=== PATIENT | female | born 1995 | race American Indian/Alaskan Native ===

== ENCOUNTER 2016-06-08 20:01 | Outpatient (CLI) | payer MEDICAID ==
[2016-06-08] MEDS ORDERED: LACTATED RINGERS 1,000 ML ONE (20:46)
[2016-06-08] MEDS ORDERED: LACTATED RINGERS 1,000 ML IV ONE (21:00)
[2016-06-08 21:06] VITALS: BP 123/79
[2016-06-08] MEDS ORDERED: ZOFRAN IV ONE (22:02)
[2016-06-08] MEDS ORDERED: VISTARIL PO ONE (22:03)
[2016-06-08 22:17] LABS: Bacteria,Urine 1+ /HPF (Negative); Bilirubin,Urine NEG (Negative); Blood,Urine NEG (Negative); Ketones,Urine NEG (Negative); Leukocyte Esterase,Urine LG (Negative); Mucus,Urine 2+ /HPF; Nitrite,Urine NEG (Negative)
== END 2016-06-08 23:00 | disposition home or self-care (01) ==
LOC: TRG 20:01
PROVIDERS: ATTEND Obstetrics & Gynecology
DX: O47.03 False labor before 37 completed weeks of gestation, third trimester (principal); Z3A.32 32 weeks gestation of pregnancy
CPT/HCPCS: 81001; J2405; J7120; Q0177

== ENCOUNTER 2016-06-16 13:05 | Outpatient (CLI) | payer MEDICAID ==
--- NOTE | 2016-06-16 15:02 | Emergency Department Report ---
ED Rash HPI - HPI Duration: 2 Days Location: Neck, Chest, Abdomen, Upper Extremities, Lower Extremities Rash Symptoms: Yes Itching, No Facial Swelling, No Tongue/Oral Swelling, No Breathing Difficulties, No Choking Sensation, No Wheezing/Dyspnea, No Peeling, No Blistering, No Fever, No Lightheaded, No Malaise, No Myalgias Severity: moderate <MAR DE LA FUENTE - Last Filed: 06/16/16 18:47> <OFELIA KAPLAN - Last Filed: 06/18/16 15:28> - HPI Chief Complaint: Skin Rash Stated Complaint: RASH/ITCHING Time Seen by Provider: 06/16/16 15:01 ED Review of Systems ROS: Stated complaint: RASH/ITCHING Other details as noted in HPI In complaining of itching rash for the past 2 days it is spread from her abdomen up to her neck her arms and her legs. Patient denies any abdominal pain , and states she feels baby move regularly. Patient denies any vaginal bleeding or abnormal vaginal discharge. Patient denies any shortness of breath , swelling of lips tongue or throat. She states she has tried to call her special certificate dictator multiple times now and has not been able to reach the office. Constitutional: denies: chills, fever, malaise Eyes: denies: eye discharge, vision change ENT: denies: ear pain, throat pain, congestion Respiratory: denies: cough, orthopnea, shortness of breath, SOB with exertion, SOB at rest, stridor, wheezing Cardiovascular: denies: chest pain, palpitations, dyspnea on exertion, orthopnea , edema, syncope, paroxysmal nocturnal dyspnea Gastrointestinal: denies: abdominal pain, nausea, vomiting, diarrhea, constipation, hematemesis, melena Genitourinary: denies: urgency, dysuria, frequency, hematuria, discharge Musculoskeletal: denies: back pain, joint swelling, arthralgia, myalgia Skin: rash, pruritus. denies: change in color, change in hair/nails Neurological: denies: headache, weakness, paresthesias <MAR DE LA FUENTE - Last Filed: 06/16/16 18:47> ROS: Stated complaint: RASH/ITCHING Other details as noted in HPI <OFELIA KAPLAN - Last Filed: 06/18/16 15:28> ED Past Medical Hx - Past Medical History Previous Medical History?: No Hx Hypertension: No Hx Diabetes: No Hx Deep Vein Thrombosis: No Hx Renal Disease: No Hx Sickle Cell Disease: No Hx Seizures: No Hx Asthma: No - Social History Smoking Status: Never Smoker Substance Use Type: None <MAR DE LA FUENTE - Last Filed: 06/16/16 18:47> <OFELIA KAPLAN - Last Filed: 06/18/16 15:28> - Medications Home Medications: Home Medications Medication Instructions Recorded Confirmed Last Taken Type Prednisone [predniSONE 10 mg 10 mg PO .TAPER #1 tab.ds.pk 06/16/16 Unknown Rx (6-Day Pack, 21 Tabs)] diphenhydrAMINE [Benadryl CAP] 25 mg PO QHS PRN #20 capsule 06/16/16 Unknown Rx Rash Exam - Exam General: Vital signs noted. No distress. Alert and acting appropriately. HEENT: No Periorbital Edema, No Conjuctival Injection, No Chemosis, No Perioral Edema, No Tongue Edema, No Uvular Edema, No Compromised Airway, No Drooling Lungs: Yes Good Air Exchange, No Wheezes, No Ronchi, No Stridor, No Cough, No Labored Respirations, No Retractions, No Use of Accessory Muscles, No Other Abnormal Lung Sounds Skin: Yes Maculopapular Rash (c/w PUPPP), No Urticarial Rash, No Morbilliform rash, No Bulla(e), No Excoriations, No Weeping, No Tenderness, No Edema, No Encrustations Other: Positive: Abdomen Normal, Neurologic Normal, Musculoskeletal Normal <MAR DE LA FUENTE - Last Filed: 06/16/16 18:47> - Exam General: Vital signs noted. No distress. Alert and acting appropriately. <OFELIA KAPLAN - Last Filed: 06/18/16 15:28> ED Course Vital Signs 06/16/16 13:12 Temperature 98.2 F Pulse Rate 105 H Respiratory 18 Rate Blood Pressure 142/91 O2 Sat by Pulse 100 Oximetry - Reevaluation(s) Reevaluation #1: 06/16/16 15:22 Explained to patient that this is PUPPP also advised patient to continue to attempt follow-up with her DOG OR ANIMAL SITTER. Advised patient to return immediately to the ER for abdominal pain vaginal bleeding, or no movement of the baby. 06/16/16 15:30 Patient now going up to labor and delivery. <MAR DE LA FUENTE - Last Filed: 06/16/16 18:47> Vital Signs 06/16/16 06/16/16 06/16/16 13:12 16:46 16:50 Temperature 98.2 F Pulse Rate 105 H 103 H 107 H Pulse Rate [ From Monitor] Respiratory 18 Rate Blood Pressure 142/91 134/81 Blood Pressure [Right Arm] O2 Sat by Pulse 100 99 Oximetry 06/16/16 06/16/16 06/16/16 16:51 16:53 16:56 Temperature 98.5 F Pulse Rate 112 H 119 H Pulse Rate [ 108 H From Monitor] Respiratory 20 Rate Blood Pressure Blood Pressure 134/81 [Right Arm] O2 Sat by Pulse 100 100 Oximetry 06/16/16 06/16/16 06/16/16 17:01 17:06 17:11 Temperature Pulse Rate 104 H 94 H 112 H Pulse Rate [ From Monitor] Respiratory Rate Blood Pressure Blood Pressure [Right Arm] O2 Sat by Pulse 100 100 100 Oximetry 06/16/16 06/16/16 06/16/16 17:16 17:21 17:26 Temperature Pulse Rate 115 H 101 H 102 H Pulse Rate [ From Monitor] Respiratory Rate Blood Pressure Blood Pressure [Right Arm] O2 Sat by Pulse 100 100 100 Oximetry 06/16/16 06/16/16 06/16/16 17:27 17:31 17:36 Temperature Pulse Rate 94 H 99 H 94 H Pulse Rate [ From Monitor] Respiratory Rate Blood Pressure Blood Pressure [Right Arm] O2 Sat by Pulse 85 100 100 Oximetry 06/16/16 06/16/16 06/16/16 17:38 17:41 17:46 Temperature Pulse Rate 101 H 101 H 99 H Pulse Rate [ From Monitor] Respiratory Rate Blood Pressure Blood Pressure [Right Arm] O2 Sat by Pulse 91 100 100 Oximetry 06/16/16 06/16/16 06/16/16 17:48 17:51 17:56 Temperature Pulse Rate 104 H 104 H 101 H Pulse Rate [ From Monitor] Respiratory Rate Blood Pressure Blood Pressure [Right Arm] O2 Sat by Pulse 86 99 100 Oximetry 06/16/16 06/16/16 18:01 18:04 Temperature Pulse Rate 100 H 31 L Pulse Rate [ From Monitor] Respiratory Rate Blood Pressure Blood Pressure [Right Arm] O2 Sat by Pulse 100 67 L Oximetry <OFELIA KAPLAN - Last Filed: 06/18/16 15:28> ED Medical Decision Making - Lab Data Result diagrams: 06/16/16 17:30 06/16/16 17:30 <MAR DE LA FUENTE - Last Filed: 06/16/16 18:47> - Lab Data Result diagrams: 06/16/16 17:30 06/16/16 17:30 <OFELIA KAPLAN - Last Filed: 06/18/16 15:28> Critical care attestation.: If time is entered above; I have spent that time in minutes in the direct care of this critically ill patient, excluding procedure time. <MAR DE LA FUENTE - Last Filed: 06/16/16 18:47> Critical care attestation.: If time is entered above; I have spent that time in minutes in the direct care of this critically ill patient, excluding procedure time. <OFELIA KAPLAN - Last Filed: 06/18/16 15:28> ED Disposition Is pt being admited?: No <MAR DE LA FUENTE - Last Filed: 06/16/16 18:47> <OFELIA KAPLAN - Last Filed: 06/18/16 15:28> Disposition: DISCHARGED TO HOME OR SELFCARE Condition: Stable
[2016-06-16] MEDS ORDERED: BENADRYL PO ONE ×2 (15:27→18:30)
[2016-06-16] MEDS ORDERED: LACTATED RINGERS 1,000 ML ONE (16:42)
[2016-06-16] MEDS ORDERED: VISTARIL IM ONE (16:52)
[2016-06-16] MEDS ORDERED: LACTATED RINGERS 1,000 ML IV ONE (16:53)
[2016-06-16 16:54] VITALS: BP 134/81
[2016-06-16] MEDS ORDERED: VISTARIL PO PRN (17:38)
[2016-06-16 17:42] LABS: Basophils % (Auto) 0.1 % (0.0-1.8); Eosinophils % (Auto) 1.6 % (0.0-4.3); Hematocrit 30.2 % (30.3-42.9); Hemoglobin 10.3 gm/dl (10.1-14.3); Mean Corpuscular HGB Conc 34 % (30-34); Mean Corpuscular Hemoglobin 31 pg (28-32); Mean Corpuscular Volume 91 fl (79-97); Platelet Count 223 K/mm3 (140-440); Red Blood Count 3.31 M/mm3 (3.65-5.03); White Blood Count 6.3 K/mm3 (4.5-11.0)
[2016-06-16 17:59] LABS: Alanine Aminotransferase 8 units/L (7-56); Alanine Aminotransferase 9 units/L (7-56); Albumin 3.5 g/dL (3.9-5); Albumin/Globulin Ratio 0.9 %; Alkaline Phosphatase 134 units/L (35-129); Alkaline Phosphatase 135 units/L (35-129); Anion Gap 17 mmol/L; Bilirubin,Total 0.4 mg/dL (0.1-1.2); Blood Urea Nitrogen 9 mg/dL (7-17); Calcium 8.9 mg/dL (8.4-10.2); Carbon Dioxide 22 mmol/L (22-30); Chloride 97.8 mmol/L (98-107); Glucose 110 mg/dL (65-100); Potassium 4.5 mmol/L (3.6-5.0); Sodium 132 mmol/L (137-145); Total Protein 7.2 g/dL (6.3-8.2)
[2016-06-16 18:02] LABS: Bilirubin,Direct < 0.2 mg/dL (0-0.2); Bilirubin,Indirect 0.2 mg/dL
== END 2016-06-16 18:45 | disposition home or self-care (01) ==
LOC: TRG 13:05 → ED 13:05 → TRG 15:42 → ED 15:42 → TRG 15:42 → EDSTATUS 16:23 → TRG 16:25
PROVIDERS: ATTEND Obstetrics & Gynecology
DX: O47.03 False labor before 37 completed weeks of gestation, third trimester (principal); Z3A.34 34 weeks gestation of pregnancy
CPT/HCPCS: 36415; 59025; 80053; 80074; 85025; 96360; J7120; J3410; Q0177

== ENCOUNTER 2016-06-29 09:43 | Outpatient (CLI) | payer MEDICAID ==
[2016-06-29] MEDS ORDERED: LACTATED RINGERS 1,000 ML IV ONE ×2 (10:25→12:01)
[2016-06-29] MEDS ORDERED: BRETHINE SUB-Q ONE (12:01)
[2016-06-29 12:02] LABS: Bacteria,Urine 1+ /HPF (Negative); Bilirubin,Urine NEG (Negative); Blood,Urine SM (Negative); Ketones,Urine NEG (Negative); Leukocyte Esterase,Urine LG (Negative); Mucus,Urine FEW /HPF; Nitrite,Urine NEG (Negative); Protein,Urine <15 mg/dL mg/dL (Negative); Urobilinogen,Urine < 2.0 mg/dL (<2.0)
[2016-06-29 13:34] VITALS: BP 138/86
== END 2016-06-29 13:54 | disposition home or self-care (01) ==
LOC: TRG 09:43
PROVIDERS: ATTEND Obstetrics & Gynecology
DX: O47.03 False labor before 37 completed weeks of gestation, third trimester (principal); Z3A.35 35 weeks gestation of pregnancy
CPT/HCPCS: 59025; 81001; 96360; 96361; 96372; J3105; J7120